=== PATIENT | female | born 1940 | race Caucasian/White ===

== ENCOUNTER 2021-04-05 13:55 | Inpatient (IN) | payer MEDICARE, OTHER ==
[~2021-04-05] VITALS: Ht 152.4 cm; Wt 53.6 kg
[2021-04-05] MEDS ORDERED: MAG HYDROX/AL HYDROX/SIMETH 30 ML UDC PO PRN (14:30)
[2021-04-05] MEDS ORDERED: MAGNESIUM HYDROXIDE 30 ML UDC PO PRN (14:30)
[2021-04-05] MEDS ORDERED: BLOOD SUGAR DIAGNOSTIC 1 EACH STRIP IN ONE (14:30)
[2021-04-05] MEDS ORDERED: SERT100T12 PO (14:51)
[2021-04-05] MEDS ORDERED: FEBU80TA3 PO (14:51)
[2021-04-05] MEDS ORDERED: LEVO125T8 PO (14:51)
[2021-04-05] MEDS ORDERED: QUET25TA PO (14:51)
[2021-04-05 15:47] VITALS: BP 150/87
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
[2021-04-05 19:30] VITALS: BP 143/81
[2021-04-05 20:00] VITALS: BP 143/81
--- NOTE | 2021-04-05 20:30 | NUR ---
RN NOTE PATIENT'S DAUGHTER KIET GILLILAND CALLED FOR AN UPDATE & PATIENT'S OTHER DAUGHTER DONAL SPOKE TO THE PATIENT. PATIENT NOTED TO BE EMOTIONAL, CRYING AFTER THE CALL. EMOTIONAL SUPPORT PROVIDED. WILL CONTINUE TO MONITOR.
[2021-04-05] MEDS: clonazePAM 0.5 MG TABLET PO PRN (22:05)
--- NOTE | 2021-04-05 22:08 | NUR ---
RN NOTE: ANXIETY PATIENT NOTED TO BE ANXIOUS, RESTLESS, PACING IN HER ROOM, KEEPS TURNING ON & OFF HER ROOM LIGHT. PRN KLONOPIN 0.25 MG PO ADMINISTERED. WILL CONTINUE TO MONITOR.
[2021-04-06 07:11] LABS: ALBUMIN 3.4 g/dL (3.4-5.0); BILIRUBIN,TOTAL 0.3 mg/dL (0.2-1.0); CREATININE 0.8 mg/dL (0.6-1.3); POTASSIUM 4.3 mmol/L (3.5-5.1); TOTAL PROTEIN, SERUM 6.7 g/dL (6.4-8.2)
[2021-04-06 07:13] LABS: CHOLESTEROL 241 mg/dL (<200); HDL CHOLESTEROL 66 mg/dL (40-60); TRIGLYCERIDES 85 mg/dL (30-150)
[2021-04-06 07:27] LABS: CALCIUM, SERUM 9.1 mg/dL (8.5-10.1)
[2021-04-06 07:33] LABS: LDL 153 mg/dL (0-99)
[2021-04-06 08:00] VITALS: BP 144/71
[2021-04-06] MEDS: LEVOTHYROXINE SODIUM 125 MCG TABLET PO SCH (08:39)
[2021-04-06] MEDS ORDERED: FEBUXOSTAT 80 MG PO SCH (09:00)
[2021-04-06] MEDS: QUETIAPINE FUMARATE 25 MG TABLET PO SCH ×2 (14:58→17:59)
[2021-04-06 20:00] VITALS: BP 153/73
[2021-04-06] MEDS: MIRTAZAPINE 15 MG TABLET PO SCH (21:26)
[2021-04-07 08:00] VITALS: BP 148/99
[2021-04-07] MEDS: LEVOTHYROXINE SODIUM 125 MCG TABLET PO SCH (09:25)
[2021-04-07] MEDS: QUETIAPINE FUMARATE 25 MG TABLET PO SCH ×3 (09:25→16:57)
[2021-04-07 16:00] VITALS: BP 139/88
[2021-04-07 20:01] VITALS: BP 158/70
[2021-04-07] MEDS: MIRTAZAPINE 15 MG TABLET PO SCH (21:14)
[2021-04-07 22:19] VITALS: BP 135/82
[2021-04-08] MEDS: QUETIAPINE FUMARATE 25 MG TABLET PO SCH ×3 (07:25→16:19)
[2021-04-08] MEDS: LEVOTHYROXINE SODIUM 125 MCG TABLET PO SCH (07:25)
[2021-04-08 08:00] VITALS: BP 148/75
[2021-04-08 16:00] VITALS: BP 164/84
[2021-04-08 20:00] VITALS: BP 129/73
[2021-04-08] MEDS: MIRTAZAPINE 15 MG TABLET PO SCH (21:25)
[2021-04-09 08:00] VITALS: BP 158/97
[2021-04-09] MEDS: LEVOTHYROXINE SODIUM 125 MCG TABLET PO SCH (08:04)
[2021-04-09] MEDS: QUETIAPINE FUMARATE 25 MG TABLET PO SCH ×3 (08:04→16:06)
--- NOTE | 2021-04-09 12:18 | NUR ---
Point of contact: SOFÍA contacted pts daughter Zamzam ([phone]) to discuss pts discharge plan. Per Zamzam, pt should not return home due to her combative behavior. Zamzam would like be to be discharged to a SNF.
--- NOTE | 2021-04-09 12:19 | NUR ---
Initial Discharge plan: Pt currently lives with her daughter in a house located on [address] [place] [address]. [place] [address]; [phone].Per pts daughter, she would like pt to be discharged to a SNF. SW will work with the pt and the MD regarding appropriate discharge planning. SW will form a safe and proper discharge.
--- NOTE | 2021-04-09 13:42 | NUR ---
Facility contact: SOFÍA sent a referral to [facility] to fax # [phone]. SOFÍA will follow up with facility at a later time.
[2021-04-09 16:20] VITALS: BP 137/99
[2021-04-09] MEDS: clonazePAM 0.5 MG TABLET PO PRN (19:43)
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
[2021-04-09] MEDS: MIRTAZAPINE 15 MG TABLET PO SCH (21:13)
[2021-04-10] VITALS (7 sets, daily range): BP systolic 110–163; BP diastolic 63–96
[2021-04-10] MEDS: clonazePAM 0.5 MG TABLET PO PRN ×2 (01:00→16:15)
--- NOTE | 2021-04-10 01:00 | NUR ---
RN NOTE: ANXIETY AND INSOMNIA PT PACING HALLWAY. ANXIOUS. UNABLE TO SLEEP. MEDICATED WITH KLONOPIN 0.25MG PO PRN. WILL CONT TO MONITOR PT FOR EFFECTIVENESS OF PRN MEDICATION.
[2021-04-10] MEDS: LEVOTHYROXINE SODIUM 125 MCG TABLET PO SCH (08:07)
[2021-04-10] MEDS: QUETIAPINE FUMARATE 25 MG TABLET PO SCH ×3 (08:07→16:14)
--- NOTE | 2021-04-10 09:05 | NUR ---
Facility contact: SOFÍA sent a referral to [facility] to fax # [phone]. SOFÍA will follow up with facility at a later time.
--- NOTE | 2021-04-10 09:13 | NUR ---
Facility contact: [facility] reports that they are unable to accept pt at this time.
--- NOTE | 2021-04-10 17:34 | NUR ---
RN-CO: PT IS TREMBLING SHE STATED "I FEEL SICK" NOTED SHE HAS POOR PO INTAKE, LOOKS WEAK. PAGED DR PABLO AND ORDERED CMP, CBC AND UA ,NOTED AND CARRIED OUT.STAT. Addendum: 04/10/21 at 1741 by HANNA DEVRIES RN RN-CO: V/S ARE FOLLOWS, 126/77, 89, 98.6, 11/22. TYLENOL 650 MG PO WILL BE GIVEN TO HER.
--- NOTE | 2021-04-10 17:40 | NUR ---
RN-CO: DURING SOLE CUTTER ROUNDS , CHANDANA STAFF FOUND PT ON THE FLOOR, WHEN WE ASKED THE PT " I SAT ON THE FLOOR." IT WAS UNWITNESSED INCIDENT.
--- NOTE | 2021-04-10 17:55 | NUR ---
RN-CO: CALLED [facility] AT 1755, THEY SUGGESTED TO CALL DR PABLO FOR CT. I CALLED DR PABLO AND SAID " WAIT FOR THE RESULT OF THE STAT LAB BEFORE ORDERING MORE.VS 161/70, 74,89, 0/10.
[2021-04-10 18:08] LABS: BASOPHILS % (AUTO) 0.4 % (0.0-2.0); EOSINOPHILS % (AUTO) 1.2 % (0.0-6.0); HEMATOCRIT 44 % (33-45); HEMOGLOBIN 14.4 g/dL (11.5-14.8); LYMPHOCYTES # (AUTO) 0.4 K/uL (0.8-4.8); LYMPHOCYTES % (AUTO) 7.9 % (20.0-44.0); MEAN CORPUSCULAR HGB CONC 33 g/dl (31.0-36.0); MEAN CORPUSCULAR VOLUME 96 fL (82-100); MONOCYTES # (AUTO) 0.1 K/uL (0.1-1.30); MONOCYTES % (AUTO) 2.6 % (2.0-12.0); NEUTROPHILS # (AUTO) 4.6 K/uL (1.8-8.9); NEUTROPHILS % (AUTO) 87.9 % (43.0-81.0); PLATELET COUNT (AUTO) 164 K/uL (150-450); RED BLOOD CELL COUNT(AUTO) 4.52 MIL/uL (4.0-5.2); WHITE BLOOD COUNT (AUTO) 5.3 K/uL (4.3-11.0)
[2021-04-10 18:21] LABS: ALBUMIN 3.9 g/dL (3.4-5.0); BILIRUBIN,TOTAL 0.8 mg/dL (0.2-1.0); CALCIUM, SERUM 8.9 mg/dL (8.5-10.1); CREATININE 0.9 mg/dL (0.6-1.3); POTASSIUM 4.2 mmol/L (3.5-5.1); TOTAL PROTEIN, SERUM 7.4 g/dL (6.4-8.2)
--- NOTE | 2021-04-10 18:27 | NUR ---
RN-CO: DONAL DAUGHTER MADE AWARE. DR REYES WAS NOTIFIED. DR REYES ORDERED CT SCAN OF THE HEAD.
--- NOTE | 2021-04-10 18:35 | NUR ---
RN-CO: CALLED DR LEIGH VARGAS LEFT VOICE MAIL.
--- NOTE | 2021-04-10 19:01 | NUR ---
RN-CO: DR PABLO MADE AWARE THAT DR REYES ORDERED CT OF HEAD . STATED "THAT IS FINE."
[2021-04-10] MEDS: ACETAMINOPHEN 325 MG TABLET PO PRN (20:48)
--- NOTE | 2021-04-10 20:50 | NUR ---
RN NOTE: FEVER PATIENT NOTED WITH BODY TEMPERATURE OF 101.3 ORALLY. PRN TYLENOL ADMINISTERED ORDERED. WILL CONTINUE TO MONITOR CLOSELY.
--- NOTE | 2021-04-10 21:47 | NUR ---
RN NOTE RECHECKED BODY TEMPERATURE ORALLY & IS 100.0F AT THIS TIME. OFFERED PO FLUIDS, PATIENT DRINKS SLOWLY, FEELS TIRED & SLEEPY. COLD SPONGING DONE. EXTRA BLANKETS & SOCKS WERE REMOVED EARLIER. WILL CONTINUE TO MONITOR CLOSELY FOR ANY CHANGE OF CONDITION.
[2021-04-10] MEDS: MIRTAZAPINE 15 MG TABLET PO SCH (22:00)
--- NOTE | 2021-04-10 22:30 | NUR ---
RN NOTE: HELD REMERON PATIENT IS NOTED TO BE VERY SLEEPY, LETHARGIC AT THIS TIME. WAS FOUND ON THE FLOOR DURING DAY SHIFT. HELD REMERON 7.5 MG AT THIS TIME. WILL CONTINUE TO MONITOR FOR ANY KUSHAL.
--- NOTE | 2021-04-10 23:07 | NUR ---
RN NOTE CHECKED PATIENT'S VITALS 110/63, 63, 18, 98.3, 97% AT RA. ENCOURAGING PO FLUIDS WHEN PATIENT IS AWAKE. WILL TRY TO TAKE THE PATIENT FOR CT HEAD ORDERED BY DR. RYEES.
--- NOTE | 2021-04-10 23:52 | NUR ---
RN NOTE: CT HEAD DONE PATIENT WAS TAKEN TO RADIOLOGY FOR CT HEAD WO CONTRAST ORDERED BY DR. REYES. PATIENT BROUGHT BACK TO [facility] IN STABLE CONDITION WITH THE HELP OF OTHER NURSE. WILL CONTINUE TO MONITOR.
--- NOTE | 2021-04-11 01:55 | NUR ---
RN NOTE CT HEAD NOT RESULTED YET.
--- NOTE | 2021-04-11 06:20 | NUR ---
RN NOTE CT HEAD HAS NOT BEEN RESULTED YET, WILL ENDORSE TO AM RN TO FOLLOW UP.
--- NOTE | 2021-04-11 06:41 | NUR ---
RN NOTE PATIENT SLEPT WELL AT NIGHT. ENCOURAGED PO FLUIDS & SNACKS TOLERATED, BODY TEMPERATURE CHECKED AT THIS TIME & IS 98.5F. AFEBRILE. WILL ENDORSE TO AM RN FOR CONTINUITY OF CARE.
[2021-04-11] MEDS: LEVOTHYROXINE SODIUM 125 MCG TABLET PO SCH (07:30)
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
[2021-04-11 08:26] LABS: BILIRUBIN,URINE NEGATIVE (NEGATIVE); COLOR,URINE YELLOW (YELLOW); LEUKOCYTE ESTERASE ,URINE NEGATIVE (NEGATIVE); NITRITE, URINE NEGATIVE (NEGATIVE); PH,URINE 6.5 (5.0-8.0); PROTEIN,URINE NEGATIVE (NEGATIVE); UGLUCOSE NEGATIVE (NEGATIVE); UROBILINOGEN,URINE 0.2 EU/dL (0.2)
[2021-04-11] MEDS: QUETIAPINE FUMARATE 25 MG TABLET PO SCH ×2 (09:04→17:33)
[2021-04-11 09:07] VITALS: BP 112/58
--- NOTE | 2021-04-11 11:43 | NUR ---
Family contact: SOFÍA contacted pts daughter Cherelle ([phone]) and informed her that pt was not accepted into any facilities in [facility]. SOFÍA reported that there are facilities that will accept the pt located in the [place]. SOFÍA reports that she will follow up with Cherelle once those facilities accept the pt.
--- NOTE | 2021-04-11 13:27 | NUR ---
SNF referral: SOFÍA faxed a referral to [facility] to fax # [phone]
--- NOTE | 2021-04-11 14:08 | NUR ---
SNF referral: SOFÍA sent referral to [facility] fax # [phone].
--- NOTE | 2021-04-11 14:08 | NUR ---
SNF referral: Pt was not accepted to [facility].
--- NOTE | 2021-04-11 15:16 | NUR ---
SNF Contact: SW was contacted by Jeny ([phone]) from [facility] located at [address] [place] [address]. Per Jeny, pts daughters referred pt to the facility. Jeny reports that they are able to accept the pt upon discharge. SOFÍA reports that she will keep her updated on a discharge date.
[2021-04-11 16:31] VITALS: BP 144/75
[2021-04-11 20:00] VITALS: BP 115/82
[2021-04-11 20:21] VITALS: BP 115/82
[2021-04-11] MEDS: MIRTAZAPINE 15 MG TABLET PO SCH (22:00)
[2021-04-12 08:00] VITALS: BP 123/68
[2021-04-12] MEDS: LEVOTHYROXINE SODIUM 125 MCG TABLET PO SCH (08:51)
[2021-04-12] MEDS: QUETIAPINE FUMARATE 25 MG TABLET PO SCH ×2 (08:51→16:38)
--- NOTE | 2021-04-12 09:33 | NUR ---
Point of contact: SOFÍA contacted pts daughter Zamzam ([phone]) and informed them that pt ws accepted to [facility]. Pts daughter reports that the facility is too far. Pts daughter reports if they cannot find a facility in the [facility] she will take pt home upon discharge.
[2021-04-12 16:00] VITALS: BP 133/74
[2021-04-12 20:00] VITALS: BP 158/71
[2021-04-12] MEDS: MIRTAZAPINE 15 MG TABLET PO SCH (21:42)
[2021-04-13 08:00] VITALS: BP 132/61
[2021-04-13] MEDS: LEVOTHYROXINE SODIUM 125 MCG TABLET PO SCH (08:06)
[2021-04-13] MEDS: QUETIAPINE FUMARATE 25 MG TABLET PO SCH ×2 (08:07→17:06)
--- NOTE | 2021-04-13 12:46 | NUR ---
Family contact: SW was contacted by pts daughter Cherelle ([phone]) and informed SW that there is facility that she would like pt to be placed at called [facility]. Pts daughter ask that the referral be sent on Friday because she would like more time for her mother to stabilize over the weekend. SW will fax referral to [facility] fax #[phone] on Friday. Per Cherelle, if pt is not accepted to the facility she will take pt home upon discharge.
[2021-04-13 16:00] VITALS: BP 153/63
[2021-04-13 19:59] VITALS: BP 158/81
[2021-04-13] MEDS: MIRTAZAPINE 15 MG TABLET PO SCH (21:11)
[2021-04-13 22:48] VITALS: BP 158/81
[2021-04-14] MEDS: LEVOTHYROXINE SODIUM 125 MCG TABLET PO SCH (07:55)
[2021-04-14 08:00] VITALS: BP 117/71
[2021-04-14] MEDS: QUETIAPINE FUMARATE 25 MG TABLET PO SCH ×2 (08:31→16:59)
[2021-04-14 16:05] VITALS: BP 113/63
[2021-04-14 19:55] VITALS: BP 136/89
[2021-04-14 20:00] VITALS: BP 136/89
[2021-04-14] MEDS: ACETAMINOPHEN 325 MG TABLET PO PRN (20:28)
--- NOTE | 2021-04-14 20:29 | NUR ---
RN NOTE: PAIN PATIENT VERBALIZED C/O RIGHT HEEL PAIN 11/22 & REQUESTED PAIN MEDICINE. PRN TYLENOL 650 MG PO ADMINISTERED. REMINDED THE PATIENT TO REST IN BED FOR A WHILE SINCE PATIENT ENJOYS WALKING MOST OF THE TIME. WILL CONTINUE TO MONITOR.
[2021-04-14] MEDS: MIRTAZAPINE 15 MG TABLET PO SCH (21:17)
--- NOTE | 2021-04-15 06:40 | NUR ---
RN NOTE PATIENT SLEPT THROUGH THE NIGHT, NO C/O PAIN VERBALIZED AT THIS TIME. WILL ENDORSE TO AM RN TO MONITOR PATIENT FOR RIGHT HEEL PAIN EPISODES.
[2021-04-15 08:00] VITALS: BP 118/52
[2021-04-15] MEDS: LEVOTHYROXINE SODIUM 125 MCG TABLET PO SCH (08:21)
[2021-04-15] MEDS: QUETIAPINE FUMARATE 25 MG TABLET PO SCH ×2 (08:21→16:22)
[2021-04-15 16:00] VITALS: BP 125/80
[2021-04-15] MEDS: ACETAMINOPHEN 325 MG TABLET PO PRN (16:23)
[2021-04-15 20:00] VITALS: BP 114/56
[2021-04-15] MEDS: MIRTAZAPINE 15 MG TABLET PO SCH (21:17)
[2021-04-16] MEDS: LEVOTHYROXINE SODIUM 125 MCG TABLET PO SCH (07:56)
[2021-04-16 08:00] VITALS: BP 133/64
[2021-04-16] MEDS: QUETIAPINE FUMARATE 25 MG TABLET PO SCH ×2 (08:04→17:30)
--- NOTE | 2021-04-16 14:51 | NUR ---
D/C Planning: SW sent referral to [facility] [id number] [place] [address] [id number] ; [phone] for placement.
[2021-04-16 16:00] VITALS: BP 157/79
[2021-04-16 20:00] VITALS: BP 111/70
[2021-04-16] MEDS: MIRTAZAPINE 15 MG TABLET PO SCH (21:07)
[2021-04-17] MEDS: LEVOTHYROXINE SODIUM 125 MCG TABLET PO SCH (07:30)
[2021-04-17 08:00] VITALS: BP 136/68
[2021-04-17 08:22] LABS: CALCIUM, SERUM 9.1 mg/dL (8.5-10.1); CREATININE 0.8 mg/dL (0.6-1.3); POTASSIUM 4.2 mmol/L (3.5-5.1)
[2021-04-17] MEDS: QUETIAPINE FUMARATE 25 MG TABLET PO SCH ×2 (08:52→17:57)
--- NOTE | 2021-04-17 09:11 | NUR ---
D/C Planning: SOFÍA f/u with referral to [facility] [id number] [place] [address] ; [phone] for placement. SOFÍA was notified by Keturah in admissions that the patient has not been accepted as there are no beds available as this time. SOFÍA will f/u with patient's daughter, Cherelle, , for D/C planning.
--- NOTE | 2021-04-17 09:12 | NUR ---
Family Contact: SOFÍA contacted pts daughter, Cherelle, ([phone]) to discuss D/C plan. Cherelle stated that she will be unable to pecan picker the patient tomorrow, 04/18/21 due to a scheduled event. Cherelle stated that she is able to pecan picker the patient on , 04/19/21. SOFÍA will f/u with Dr. Cruz.
--- NOTE | 2021-04-17 09:13 | NUR ---
D/C Planning: SW discussed D/C plan and family contact with Dr. Cruz. SOFÍA notified Dr. Cruz that the patient's daughter Cherelle, ([phone]) is only able to picker the patient on , 04/19/21. Dr. Cruz notified SW that the patient can be discharged on 04/19/21.
--- NOTE | 2021-04-17 09:14 | NUR ---
Family Contact: SW notified patient's daughter, Cherelle ([phone]) that the patient can be picked up on 04/19/[address] Cruz. Cherelle agreed with this D/C plan.
[2021-04-17 16:00] VITALS: BP 135/68
[2021-04-17 20:00] VITALS: BP 143/98
[2021-04-17 20:05] VITALS: BP 143/98
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
[2021-04-17] MEDS: MIRTAZAPINE 15 MG TABLET PO SCH (21:19)
[2021-04-18] MEDS: LEVOTHYROXINE SODIUM 125 MCG TABLET PO SCH (07:30)
[2021-04-18 08:00] VITALS: BP 145/76
--- NOTE | 2021-04-18 09:11 | NUR ---
Family Contact: SOFÍA contacted pts daughter, Cherelle ([phone]). SOFÍA was notified per charge nurse, Flora that the pts daughter wanted to discuss the pt with SOFÍA. Cherelle agreed with the discharge plan that was discussed earlier and pt will discharge home with family. Cherelle expressed her concerns and wanted to confirm that the pt would be "stable and medicated" prior to D/C. SOFÍA notified Cherelle that the pt has been compliant with her medication. Cherelle asked SOFÍA if Dr. Cruz could be consulted regarding pts "current stage of Dementia," her Depression, and any recommendations for placement. SOFÍA followed up with Dr. Cruz. SOFÍA notified Cherelle that the pt should consult with a neurologist and minimize triggers at home. SOFÍA stated that the pt has been depressed. SOFÍA offered to provide Cherelle with senior resources at the time of D/C. SOFÍA will file the senior resources in the pts D/C packet.
[2021-04-18] MEDS: QUETIAPINE FUMARATE 25 MG TABLET PO SCH ×2 (09:18→17:39)
[2021-04-18 16:00] VITALS: BP 117/63
[2021-04-18 19:46] VITALS: BP 119/86
[2021-04-18] MEDS: MIRTAZAPINE 15 MG TABLET PO SCH (22:41)
[2021-04-18] MEDS: clonazePAM 0.5 MG TABLET PO PRN (22:41)
[2021-04-19] MEDS: LEVOTHYROXINE SODIUM 125 MCG TABLET PO SCH (07:58)
[2021-04-19 08:00] VITALS: BP 166/62
[2021-04-19] MEDS: QUETIAPINE FUMARATE 25 MG TABLET PO SCH (08:15)
--- NOTE | 2021-04-19 09:00 | NUR ---
RN-CO: DISCHARGE NOTE: DR BERGMAN GAVE AN ORDER TO DISCONTINUE HOLD AND DISCHARGE PATIENT TODAY. NOTED. DR PANDEY MEDICALLY CLEARED THE PATIENT AND WROTE HIS PRESCRIPTION. PT IS A/OX2-3, ABLE TO MAKE NEEDS KNOWN. PT DENIES AH,VH,SI,HI. SHE REMAINS CALM AND COOPERATIVE DURING HER STAY HERE IN [facility]. SHE IS AWARE OF HER DISCHARGE AND THAT HER DAUGHTER COLLIN WILL PICK HER UP. PATIENT DENIES PAIN AND DISCOMFORTS.
--- NOTE | 2021-04-19 14:14 | NUR ---
RN-CO: PATIENT WAS PICKED UP BY DAUGHTER COLLIN GILLILAND. PRESCRIPTIONS WERE DISCUSSED TO HER AND THE DISCHARGE INSTRUCTIONS.
--- NOTE | 2021-04-19 14:15 | NUR ---
Discharge Note: Pt discharged and went back home with her daughter, Cherelle ([phone]), to [address] [place] [address]; [phone]. Pt denied suicidal/homicidal ideations and denied visual/auditory hallucinations. Pts mood and affect was calm and cooperative at discharge. She was agreeable to discharge to prior living arrangement at home with family. Pt was referred to [facility] located at [address] [place] [id number]; . Pt will also follow up with her sharepoint engineer, Dr. Stephane Tripathi located at [address] [place] [address]; [phone] and has an appointment scheduled for 04/24/21 at 1:30 p.m.
== END 2021-04-19 14:15 | disposition home or self-care (01) | DRG 885 ==
LOC: GPS 13:55
PROVIDERS: ADMIT Psychiatry & Neurology Psychiatry; ATTEND Internal Medicine
DX: F33.3 Major depressive disorder, recurrent, severe with psychotic symptoms (principal); F29 Unspecified psychosis not due to a substance or known physiological condition; F41.9 Anxiety disorder, unspecified; Z73.6 Limitation of activities due to disability; Z91.81 History of falling; Z79.899 Other long term (current) drug therapy; R27.8 Other lack of coordination; R53.1 Weakness; M10.9 Gout, unspecified; E03.9 Hypothyroidism, unspecified; F03.90 Unspecified dementia, unspecified severity, without behavioral disturbance, psychotic disturbance, mood disturbance, and anxiety
CPT/HCPCS: 36415; 70450-TC; 80048-TC; 80053-TC; 80061-TC; 82962-TC; 85025-TC; 87081-TC